=== PATIENT | female | born 2000 | race Caucasian/White ===

== ENCOUNTER 2021-03-24 15:39 | Inpatient (IN) ==
[2021-03-24] MEDS ORDERED: BETAMETH SODIUM PHOS/ACETATE 30 MG/5 ML VIAL IM SCH (16:30)
[2021-03-24] MEDS: LACTATED RINGERS 1,000 ML IV SCH (17:00)
[2021-03-24] MEDS ORDERED: TERBUTALINE 1 MG/1 ML VIAL SUBCUT PRN (17:20)
[2021-03-24] MEDS ORDERED: TERBUTALINE 1 MG/1 ML VIAL ONE (17:22)
[2021-03-24 23:36] LABS: Basophils % 0.1 % (0.0-0.8); Hematocrit 33.6 VOL% (35.7-47.0); Hemoglobin 11.1 GM/DL (12.0-16.0); Immature Granulocytes % 0.4 %; Immature Granulocytes Absolute 0.03 #; Lymphocytes # 0.7 10*3/uL (1.4-4.0); Lymphocytes % 9.5 % (21.3-54.2); Mean Corpuscular Volume 83.8 FL (87-102); Mean Platelet Volume 12.5 FL (9.6-12.0); Platelet Count 216 T/CUMM (130-400); Red Blood Count 4.01 MC/CUMM (3.8-5.5); Red Cell Distribution Width 13.8 % (9.3-17.3); White Blood Count 7.8 T/CUMM (4-12)
[2021-03-24] MEDS: BUTORPHANOL 2 MG/ML VIAL IV PRN (23:49)
[2021-03-24] MEDS: ONDANSETRON 4 MG/2 ML VIAL IV PRN (23:50)
[2021-03-25] MEDS ORDERED: AMPICILLIN INJ 2,000 MG in SODIUM CHLORIDE 0.9% 100 ML IV ONE (00:03)
[2021-03-25] MEDS: BUTORPHANOL 2 MG/ML VIAL IV PRN ×3 (03:48→22:00)
[2021-03-25] MEDS: LACTATED RINGERS 1,000 ML IV SCH (03:58)
[2021-03-25] MEDS: AMPICILLIN INJ 1,000 MG in SODIUM CHLORIDE 0.9% 100 ML IV SCH ×4 (03:59→17:40)
[2021-03-25] MEDS ORDERED: BETAMETH SODIUM PHOS/ACETATE 30 MG/5 ML VIAL IM ONE (04:00)
[2021-03-25] MEDS: MEPERIDINE 50 MG/1 ML VIAL IV PRN ×2 (09:33→19:36)
[2021-03-25] MEDS: ONDANSETRON 4 MG/2 ML VIAL IV PRN ×2 (09:34→19:32)
[2021-03-25] MEDS ORDERED: METHYLERGONOVINE 0.2 MG/1 ML AMP ONE (20:53)
[2021-03-25] MEDS ORDERED: miSOPROStoL 200 MCG TABLET ONE (20:53)
[2021-03-25] MEDS ORDERED: SODIUM CHLORIDE 0.9% 100 ML IV ONE (20:53)
[2021-03-25] MEDS ORDERED: TRANEXAMIC ACID 1,000 MG/10 ML VIAL ONE (20:53)
[2021-03-25] MEDS ORDERED: CARBOPROST TROMETHAMINE 250 MCG/ML AMP IM ONE (20:53)
[2021-03-25] MEDS ORDERED: LIDOCAINE 1% 50 ML VIAL ONE (20:53)
[2021-03-25] MEDS ORDERED: OXYTOCIN/LR 20 UNIT/1,000 ML BAG IV ONE ×2 (20:54→23:38)
[2021-03-25] MEDS ORDERED: ePHEDrine 50 MG/ML VIAL ONE (21:20)
[2021-03-25] MEDS ORDERED: fentaNYL 2 MCG/ROPIV 0.2% EPID 100 ML EPIDURAL ONE (21:20)
[2021-03-25 21:54] LABS: Cord Venous Blood HCO3 21.4 MMOL/L; Cord Venous Blood PO2 18.8
[2021-03-25 21:58] LABS: Cord Venous Blood PCO2 49.9 MMHG; Cord Venous Blood PO2 19.4
[2021-03-25] MEDS ORDERED: diphenhydrAMINE 50 MG/1 ML VIAL ONE (22:05)
[2021-03-25] MEDS: diphenhydrAMINE 50 MG/1 ML VIAL IV SCH (22:10)
[2021-03-26] MEDS ORDERED: DIPH/TET/ACEL PERT BOOSTER VACCINE 0.5 ML VIAL IM ONE (00:55)
[2021-03-26] MEDS ORDERED: LANOLIN 50% CREAM 0.3 OZ TUBE TOP PRN (00:55)
[2021-03-26] MEDS ORDERED: oxyCODONE/ACETAMINOPHEN 5-325 MG TABLET PO PRN (00:55)
[2021-03-26] MEDS ORDERED: RHO(D) IMMUNE GLOBULIN 300 MCG SYRINGE IM ONE (00:55)
[2021-03-26] MEDS ORDERED: ONDANSETRON 4 MG/2 ML VIAL IV PRN (00:55)
[2021-03-26] MEDS ORDERED: HYDROCORTISONE 2.5% RECTAL CREAM 30 GM TUBE TOP PRN (00:55)
[2021-03-26] MEDS ORDERED: ACETAMINOPHEN 325 MG TABLET PO PRN (00:55)
[2021-03-26] MEDS ORDERED: BISACODYL 10 MG SUPP RECTAL PRN (00:55)
[2021-03-26] MEDS ORDERED: WITCH HAZEL PADS 100/JAR TOP PRN (00:55)
[2021-03-26] MEDS ORDERED: BENZOCAINE 20%/MENTHOL 0.5% SPRAY 56 GM CAN TOP PRN (00:55)
[2021-03-26] MEDS ORDERED: OXYTOCIN/LR 20 UNIT/1,000 ML BAG IV ONE (00:55)
[2021-03-26] MEDS ORDERED: MEASLES/MUMPS/RUBELLA VACCINE 0.5 ML VIAL SUBCUT ONE (00:55)
[2021-03-26] MEDS: oxyCODONE/ACETAMINOPHEN 5-325 MG TABLET PO PRN ×3 (01:50→20:20)
[2021-03-26] MEDS: IBUPROFEN 800 MG TABLET PO PRN ×4 (01:51→20:20)
[2021-03-26] MEDS: ALUMINUM/MAGNES/SIMETH MAX STR 30 ML UDCUP PO PRN ×2 (02:50→19:58)
[2021-03-26 05:17] LABS: Basophils % 0.1 % (0.0-0.8); Hematocrit 32.1 VOL% (35.7-47.0); Hemoglobin 10.1 GM/DL (12.0-16.0); Immature Granulocytes % 0.7 %; Immature Granulocytes Absolute 0.13 #; Lymphocytes # 1.8 10*3/uL (1.4-4.0); Lymphocytes % 9.9 % (21.3-54.2); Mean Corpuscular HGB Conc 31.5 GM/DL (32-36); Mean Corpuscular Volume 87.5 FL (87-102); Mean Platelet Volume 12.5 FL (9.6-12.0); Monocytes % 7.2 % (1.7-12.7); Neutrophils % 82.1 % (38.7-73.9); Platelet Count 224 T/CUMM (130-400); Red Blood Count 3.67 MC/CUMM (3.8-5.5); Red Cell Distribution Width 14.1 % (9.3-17.3)
[2021-03-26] MEDS: diphenhydrAMINE 50 MG/1 ML VIAL IV SCH (06:42)
[2021-03-26] MEDS: DOCUSATE SODIUM 100 MG CAPSULE PO SCH ×2 (07:57→20:27)
[2021-03-26] MEDS: diphenhydrAMINE CAP 25 MG CAPSULE PO SCH ×2 (14:11→22:17)
[2021-03-26] MEDS ORDERED: SIMETHICONE CHEW 80 MG TABLET PO PRN (20:23)
[2021-03-27] MEDS: diphenhydrAMINE CAP 25 MG CAPSULE PO SCH ×2 (06:19→17:03)
[2021-03-27] MEDS: IBUPROFEN 800 MG TABLET PO PRN ×2 (07:42→16:11)
[2021-03-27] MEDS: DOCUSATE SODIUM 100 MG CAPSULE PO SCH ×3 (07:42→20:38)
[2021-03-27] MEDS ORDERED: diphenhydrAMINE CAP 25 MG CAPSULE PO PRN (18:07)
[2021-03-28] MEDS: IBUPROFEN 800 MG TABLET PO PRN (08:10)
[2021-03-28] MEDS: DOCUSATE SODIUM 100 MG CAPSULE PO SCH (08:10)
[2021-03-28 09:35] VITALS: BP 127/72
== END 2021-03-28 10:20 | disposition home or self-care (01) | DRG 807 ==
LOC: N.LDOUT 15:39 → N.LD 15:41 → N.OB 03-26 02:15
PROVIDERS: ADMIT Obstetrics & Gynecology; ATTEND Obstetrics & Gynecology